=== PATIENT | male | born 1970 | race Caucasian/White ===

== ENCOUNTER → 2017-11-14 10:28 | Outpatient (CLI) | payer MEDICAID, SELFPAY ==
[2017-11-14 11:29] LABS: Alanine Aminotransferase 41 U/L (12-78); Albumin Level 3.7 gm/dL (3.4-5.0); Alkaline Phosphatase 100 U/L (46-116); Anion Gap 12.7 mEq/L (5-15); Aspartate Amino Transferase 41 U/L (15-37); Bilirubin,Total 0.4 mg/dL (0.2-1.0); Blood Urea Nitrogen 12 mg/dL (7-18); Calcium 9.5 mg/dL (8.5-10.1); Carbon Dioxide 28 mmol/L (21.0-32.0); Chloride 104 mmol/L (98-107); Cholesterol 132 mg/dL (140-200); Creatine Kinase 134 U/L (39-308); Creatine Kinase MB 2.7 ng/ml (0.0-3.6); Creatinine,Serum 1.06 mg/dL (0.70-1.30); Estimated Glomerular Filt Rate 74 ml/min (>60); GFR (African American) 90 ML/MIN (>60); Globulin 3.8 gm/dl (1.3-3.2); Glucose 218 mg/dL (74-106); HDL Cholesterol 22 mg/dL (27-67); LDL Cholesterol 51 mg/dL (0-130); Potassium 3.7 mmoL/L (3.5-5.1); Sodium 141 mmol/L (136-145); Thyroid Stimulating Hormone 1.84 uIU/ml (0.358-3.740); Total Protein,Serum 7.5 gm/dL (6.4-8.2); Triglycerides 296 mg/dL (30-200); Troponin I < 0.02 ng/ml (0.00-0.06); VLDL Cholesterol 59 mg/dL (0-40)
[2017-11-14 12:13] LABS: Basophils % 0.7 % (0.1-2.0); Eosinophils # 0.3 K/mm3 (0.0-0.4); Eosinophils % 5.3 % (0.1-12.0); Hematocrit 48.3 % (42.0-52.0); Hemoglobin 16.3 g/dL (14.1-18.0); Lymphocytes # 2.1 K/mm3 (0.7-4.5); Lymphocytes % 33.6 K/mm3 (10-50); Mean Corpuscular HGB Conc 33.8 g/dL (31.8-35.4); Mean Corpuscular Hemoglobin 29.9 pg (27.0-31.2); Mean Corpuscular Volume 88.7 fl (80-94); Mean Platelet Volume 7.6 fl (7.4-10.4); Monocytes # 0.6 K/mm3 (0.1-1.0); Monocytes % 8.8 % (1.7-9.3); Neutrophils # 3.3 K/mm3 (1.8-7.8); Neutrophils % 51.7 % (37.0-80.0); Platelet Count 254 K/mm3 (142-424); Red Blood Count 5.45 M/mm3 (4.60-6.20); Red Cell Distribution Width 12.8 % (11.5-17.5); White Blood Count 6.3 K/mm3 (4.8-10.8)
[2017-11-14 13:00] LABS: Hemoglobin A1C 6.1 % (0.0-7.0)
[2017-11-16 17:31] LABS: Vitamin B12 421 pg/mL (232-1245)
== END ==
PROVIDERS: Visit Provider Physician Assistant
DX: R07.9 Chest pain, unspecified (principal); R00.2 Palpitations; R06.02 Shortness of breath; R73.01 Impaired fasting glucose; I10 Essential (primary) hypertension; E78.2 Mixed hyperlipidemia; E53.8 Deficiency of other specified B group vitamins
CPT/HCPCS: 36415; 80053; 80061; 82550; 82553; 82607; 83036; 84443; 84484; 85025; 93005

== ENCOUNTER → 2017-11-20 07:41 | Outpatient (CLI) | payer MEDICAID, SELFPAY ==
--- NOTE | 2017-11-20 07:46 | CA_ITS ---
PROCEDURE: 2-D M-mode and color Doppler study INDICATIONS FOR THE TEST: Chest pain X COPD Heart Murmur Tobacco Smoking Palpitations Fatigue Syncope Edema HypertensionXDiabetes Mellitus Rheumatic Fever SOB LANDRY ObesityXHyperlipidemiaX Family History HD Additional History TDS OBESITY PATIENT INFORMATION HEIGHT: 70 WEIGHT:275 GENDER: Male B/P:120/80 2-D/M-MODE INTERPRETATION: 2-D MEASUREMENTS OBSERVED VALUES IN CMS Right Ventricular Dimension (RVDd) 3.0 Interventricular Septum (Thickness)(IVsd) 1.4 Left Ventricular Internal Dimensions(LVIDd) 4.3 Left Ventricular Posterior Wall (Thickness)(LVPWd) 1.2 Aortic Root 3.9 Aortic Cusp Separation 2.1 Left Atrial Dimensions (LAD) 3.2 2D 1. Left atrium is qualitatively mildly enlarged, left ventricle is normal size, mild concentric left ventricular hypertrophy, visually estimated ejection fraction 55% with no obvious regional wall motion abnormality. 2. The right atrium and right ventricle are mildly enlarged with normal contractility. 3. The aortic valve is minimally thickened and fibrosed. 4. The mitral valve has mitral annular calcification. 5. The pulmonic valve is poorly visualized. 6. Tricuspid valve is structurally normal. 7. No significant pericardial effusion noted. DOPPLER INTERROGATION: Doppler interrogation of the aortic, mitral and tricuspid valvular presence of mild mitral and tricuspid regurgitation, tricuspid and jet velocity insufficient for calculation of the right ventricular systolic pressure, grade 1 diastolic dysfunction seen without tissue Doppler evidence of raised left atrial pressure. CONCLUSION: 1. Qualitatively mildly enlarged left atrium, normal left ventricular size, mild concentric left ventricular hypertrophy, visually estimated ejection fraction 55% with no obvious regional wall motion abnormality, grade 1 diastolic dysfunction seen without tissue Doppler evidence of raised left atrial pressure. 2. Mildly enlarged right ventricle with normal contractility. 3. Mild mitral and tricuspid regurgitation. 4. No significant pericardial effusion noted.
== END ==
PROVIDERS: Family Provider Family Medicine; PCP Family Medicine; Visit Provider Family Medicine
DX: R07.9 Chest pain, unspecified (principal)
CPT/HCPCS: 93017; 93306

== ENCOUNTER → 2017-12-09 13:08 | Outpatient (CLI) | payer MEDICAID, SELFPAY | PROVIDERS: PCP Family Medicine; Visit Provider Family Medicine | DX: I10 Essential (primary) hypertension (principal); R06.83 Snoring; R53.83 Other fatigue | CPT/HCPCS: 95806 ==

== ENCOUNTER → 2018-02-02 10:06 | Outpatient (CLI) | payer MEDICAID, SELFPAY ==
--- NOTE | 2018-02-02 10:16 | XR_ITS ---
XR knee RT 3V HISTORY: ITS.REASON: RT KNEE PAIN ORDERING PHYSICIAN: Jana Treviño PATIENT AGE: 48 years COMPARISON: Right knee 06/21/2008 FINDINGS: No fracture or dislocation. No lytic or blastic change. Normal mineralization. No significant arthritic changes evident. No other significant findings IMPRESSION: Negative Knee
== END ==
PROVIDERS: PCP Family Medicine; Visit Provider Nurse Practitioner Family
DX: M25.561 Pain in right knee (principal)
CPT/HCPCS: 73562

== ENCOUNTER → 2018-02-09 08:24 | Outpatient (CLI) | payer MEDICAID, SELFPAY ==
--- NOTE | 2018-02-09 08:26 | MR_ITS ---
MR knee RT wo con HISTORY: Medial right knee pain ITS.REASON: RIGHT KNEE PAIN ORDERING PHYSICIAN: Jana Treviño PATIENT AGE: 48 years Comparison: 02/02/2018 TECHNIQUE: Standard multiplanar multiecho sequences are performed without contrast. FINDINGS: The cruciate ligaments, collateral ligaments, patellar tendon, quadriceps tendon also appear intact.. There is a nondisplaced horizontal tear involving the posterior horn of the medial meniscus. The lateral meniscus has an unremarkable appearance. There is thinning of the patellar cartilage with small osteophyte along the superior aspect and inferior aspect of the patella and small subcortical areas of increased T2 signal. A small knee joint effusion. Minimal bone marrow edema involves the medial femoral condyle medially IMPRESSION: 1. Horizontal tear involves posterior horn of the medial meniscus 2. Osteoarthritic change of the patellofemoral joint
== END ==
PROVIDERS: Family Provider Family Medicine; PCP Family Medicine; Visit Provider Nurse Practitioner Family
DX: M25.561 Pain in right knee (principal)
CPT/HCPCS: 73721

== ENCOUNTER 2018-08-19 15:00 | Outpatient (RCR) | payer MEDICAID, SELFPAY | END 2018-08-20 13:51 | disposition home or self-care (01) | LOC: PT.CARL 15:00 | PROVIDERS: Visit Provider Orthopaedic Surgery Adult Reconstructive Orthopaedic Surgery | DX: S83.241A Other tear of medial meniscus, current injury, right knee, initial encounter (principal); M25.561 Pain in right knee | CPT/HCPCS: 97010; 97110; 97112; 97163 ==

== ENCOUNTER → 2022-02-13 08:32 | Outpatient (CLI) | payer OTHER, SELFPAY ==
--- NOTE | 2022-02-13 08:36 | US_ITS ---
FINAL REPORT CLINICAL HISTORY: RIGHT UPPER QUADRANT ABDOMINAL PAIN FINDINGS: Sonographic images of the right upper quadrant were obtained. The pancreas is partially obscured. The liver has increased echogenicity consistent with fatty infiltration. The portal vein measures 9 mm and is patent with normal directional flow. There is sludge within the gallbladder with gallstones in the neck of the gallbladder. There is no evidence of biliary ductal dilatation.The common duct measures 4mm. The right kidney measures 12.0 cm in length and the limited images are unremarkable. IMPRESSION: Fatty liver. Cholelithiasis. Reviewed, Interpreted and Dictated by Hayden Mathews III, MD Transcribed by Marilynn Ambriz Authenticated and [facility]
== END ==
PROVIDERS: PCP Family Medicine; Visit Provider Family Medicine
DX: R10.11 Right upper quadrant pain (principal)
CPT/HCPCS: 76705

== ENCOUNTER → 2022-06-11 09:23 | Outpatient (CLI) | payer OTHER, SELFPAY ==
[2022-06-11 10:00] LABS: Basophils # 0.1 K/mm3 (0-0.2); Basophils % 1.2 % (0.1-2.0); Eosinophils # 0.2 K/mm3 (0.0-0.4); Eosinophils % 2.7 % (0.1-12.0); Hematocrit 51.3 % (42.0-52.0); Hemoglobin 16.8 g/dL (14.1-18.0); Lymphocytes % 35.9 % (10-50); Mean Corpuscular HGB Conc 32.8 g/dL (31.8-35.4); Mean Corpuscular Hemoglobin 29.7 pg (27.0-31.2); Mean Corpuscular Volume 90.3 fl (80-94); Mean Platelet Volume 8.2 fl (7.4-10.4); Monocytes # 0.3 K/mm3 (0.1-1.0); Monocytes % 5.3 % (1.7-9.3); Neutrophils % 54.9 % (37.0-80.0); Platelet Count 232 K/mm3 (142-424); Red Blood Count 5.68 M/mm3 (4.60-6.20); White Blood Count 5.5 K/mm3 (4.8-10.8)
[2022-06-11 10:22] LABS: Chloride 101 mmol/L (98-107)
[2022-06-11 10:23] LABS: Sodium 137 mmol/L (136-145)
[2022-06-11 10:25] LABS: Alanine Aminotransferase 56 U/L (12-78); Aspartate Amino Transferase 72 U/L (17-59); Blood Urea Nitrogen 15 mg/dl (9-20); Estimated Glomerular Filt Rate 70 ml/min (>60); GFR (African American) 84 ML/MIN (>60)
[2022-06-11 10:26] LABS: Albumin Level 4.2 g/dl (3.5-5.0); Albumin/Globulin Ratio 1.7 (1.1-1.8); Alkaline Phosphatase 107 U/L (38-126); Bilirubin,Total 0.6 mg/dl (0.2-1.3); Calcium 9.8 mg/dl (8.4-10.2); Carbon Dioxide 29 mmol/L (22.0-30.0); Globulin 2.5 g/dL (1.3-3.2); Glucose 189 mg/dl (74-100); Total Protein,Serum 6.7 g/dl (6.3-8.2)
== END ==
PROVIDERS: PCP Family Medicine; Visit Provider Surgery
DX: K82.9 Disease of gallbladder, unspecified (principal)
CPT/HCPCS: 36415; 80053; 85025

== ENCOUNTER 2022-08-05 07:44 | Day surgery (SDC) | payer OTHER, SELFPAY ==
[2022-08-05] VITALS (11 sets, daily range): BP systolic 132–158; BP diastolic 64–106; PULSE 66–97; RESP 17–19; TEMP 36.4–43; O2SAT 90–98
[2022-08-05 08:10] LABS: POC Glucose,Bedside 142 (70-110)
--- NOTE | 2022-08-05 08:51 | EXP.ANES.CKL ---
[facility] Disclaimer: The information contained in this section may have been updated after the patient was seen, as this information can be updated by other users. Medical History (Updated 08/05/22 @ 07:55 by Arline Samaniego RN) Hyperlipidemia Hypertension Sleep apnea Surgical History (Updated 06/28/22 @ 10:27 by Shelly Harris RN) History of carpal tunnel release of both wrists History of knee surgery History of spinal surgery Family History (Updated 08/05/22 @ 07:55 by Arline Samaniego RN) Other Family history of cancer Family history of hypertension Social History (Updated 08/05/22 @ 07:58 by Arline Samaniego RN) Smoking Status: Never smoker alcohol intake: current substance use type: denies use current occupational status: employed Travel in the last 8 weeks: [place] the [place] household members: none housing: house lives independently: Yes marital status: single education level: college current occupational exposures/hazards: Yes caffeine: Yes special lenin needs: No agree to transfusion: No do you feel safe at home: Yes victim of physical abuse: No victim of emotional abuse: No victim of sexual abuse: No would you like helpful sources: No [facility] Anesthesia Checklist Patient Identification Patient Identification: Arm Band Structural Data Admitted From: Home Planned Operative Procedure/s: Laparoscopic Cholecystectomy Consent for Planned Operative Procedure(s) Verified: Yes Verified Documents: Surgical Consent and History and Physical NPO Status Verified Time NPO: 00:00 Additional verifications Anesthesia Reactions: No Hx Blood Transfusions: No Blood Transfusion Reaction: No Airway Assessment C-Spine Mobility Assessed: Yes TMJ Mobility Assessed: Yes Dentition: Good Dentition (Front Chipped Tooth) Neurological Assessment Level of Consciousness: Awake and Alert Anesthesia Plan Anesthesia Risk discussed: Yes Anesthesia Plan: Verified ASA Class: III Anesthesia Type: General
--- NOTE | 2022-08-05 09:00 | EXP.GEN.HP ---
HPI HPI HPI: Patient is a pleasant 52-year-old male from [place] referred by Dr. Michael Dutta for gallbladder.? I had initially seen him in the office 02/26/22.? Patient works in construction and painting road lines.? He states that he is prediabetic .? He does have a known history of fatty liver.? He has recently developed some right upper quadrant pain with radiation into his back.? He has had some associated mild nausea.? This is been intermittent.? Interestingly he does have some degree of symptoms with positional changes and activities such as sneezing.? He does have occasional symptoms occurring postprandially.? He had a gallbladder ultrasound which reveals sludge and cholelithiasis in the neck of the gallbladder with fatty liver.? Due to his work schedule he wished to refrain from surgery until the wintertime.? He has had some ongoing right upper quadrant pain.? Less radiation into the back. [facility] Disclaimer: The information contained in this section may have been updated after the patient was seen, as this information can be updated by other users. Medical History (Updated 08/05/22 @ 07:55 by Arline Samaniego RN) Hyperlipidemia Hypertension Sleep apnea Surgical History (Updated 06/28/22 @ 10:27 by Shelly Harris RN) History of carpal tunnel release of both wrists History of knee surgery History of spinal surgery Family History (Updated 08/05/22 @ 07:55 by Arline Samaniego RN) Family history of cancer Family history of hypertension Social History (Updated 08/05/22 @ 07:58 by Arline Samaniego RN) Smoking Status: Never smoker alcohol intake: current substance use type: denies use current occupational status: employed Travel in the last 8 weeks: [place] the [place] household members: none housing: house lives independently: Yes marital status: single education level: college current occupational exposures/hazards: Yes caffeine: Yes special lenin needs: No agree to transfusion: No do you feel safe at home: Yes victim of physical abuse: No victim of emotional abuse: No victim of sexual abuse: No would you like helpful sources: No Meds Home Medications and Allergies Home Medications Medication Instructions Recorded Confirmed Type fenofibrate nanocrystallized 145 1 tab PO DAILY Cholesterol 02/26/22 08/05/22 History mg tablet irbesartan 150 1 tab PO DAILY BP 02/26/22 08/05/22 History mg-hydrochlorothiazide 12.5 mg tablet metformin 500 mg tablet 500 mg PO DAILY pre-diabetes 02/26/22 08/05/22 History metoprolol succinate 50 mg 50 mg PO DAILY BP 02/26/22 08/05/22 History tablet,extended release 24 hr omeprazole 40 mg capsule,delayed 40 mg PO DAILY acid reflux 02/26/22 08/05/22 History release New Prescriptions to Start Prescriptions: Allergies Allergy/AdvReac Type Severity Reaction Status Date / Time No Known Allergies Allergy Verified 06/11/22 09:01 Exam Data for Last 24 hours Vital signs and Labs for Last 24 Hours: Temp Pulse Resp BP Pulse Ox 97.5 F L 76 18 147/64 H 94 L 08/05/22 08:00 08/05/22 08:00 08/05/22 08:00 08/05/22 08:00 08/05/22 08:00 Laboratory Results - last 24 hr 08/05/22 08:03: POC Glucose 142 H Constitutional Constitutional: no acute distress *Routine HEENT Exam Head: Present normocephalic Eye: Present EOMI ENT: Present mucous membranes moist *Routine Respiratory Exam Respiratory: Present CTA bilaterally *Routine Cardiovascular Exam Cardiovascular: Present RRR *Routine Abdominal Exam Abdominal: Present soft *Routine Rectal Exam Rectal:: deferred *Routine Genitalia Exam Genitalia:: deferred Results Results Lab Results Last 24 Hours:: Laboratory Results - last 24 hr 08/05/22 08:03: POC Glucose 142 H Assessment and Plan *Assessment and plan (1) Gallstones: Status: Acute Category: Medical Code(s): K80.20 - Calculus of gallbladder without cholecystitis wi
--- NOTE | 2022-08-05 10:40 | EXP.OP.NOTE ---
Date of procedure: 08/05/22 Pre-op Diagnosis:: Symptomatic gallstones Post-op Diagnosis:: Same Liver disease Procedure performed:: Laparoscopic cholecystectomy Laparoscopic liver biopsy Surgeon:: Hayden Goodman MD BRUSH WORKER:: Other Anesthesia: GETA Estimated blood loss (mL): 15 Clinical Note:: Patient is a pleasant 52-year-old male from [place] referred by Dr. Michael Dutta for gallbladder.? I had initially seen him in the office 02/26/22.? Patient works in construction and painting road lines.? He states that he is prediabetic .? He does have a known history of fatty liver.? He has recently developed some right upper quadrant pain with radiation into his back.? He has had some associated mild nausea.? This is been intermittent.? Interestingly he does have some degree of symptoms with positional changes and activities such as sneezing.? He does have occasional symptoms occurring postprandially.? He had a gallbladder ultrasound which reveals sludge and cholelithiasis in the neck of the gallbladder with fatty liver.? Due to his work schedule he wished to refrain from surgery until the wintertime.? He has had some ongoing right upper quadrant pain.? Less radiation into the back. He wished to proceed to cholecystectomy. Please note, postoperatively given the appearance of the liver and nature of his symptoms is very probable that some degree of his symptoms are secondary to his liver. Biopsy was therefore performed. Operative findings:: He had a distended somewhat thickened gallbladder. There was some findings of appreciable fatty liver with some nodularity consistent with fibrosis Operative note:: Patient was taken the operating room. He was positioned in supine position. General anesthesia was induced via endotracheal tube. Abdomen was prepped and draped in the standard surgical fashion. Subumbilical skin incision was made and while performing abdominal wall lift Veress needle was inserted. CO2 pneumoperitoneum was achieved to 15 mmHg. 11 mm trocar was inserted at the umbilicus. Intraperitoneal contents were visualized. He was positioned in reverse Trendelenburg left side down. A couple of 5 mm trochars were inserted in the right upper abdomen. 10 mm trocar was inserted in the epigastrium. He had significant fatty infiltration of the liver with some nodularity. The gallbladder was grasped retracted anteriorly over the dome of the liver. He required use of the angled laparoscope for visualization of the neck of the gallbladder and jaimie hepatis. There was some significant fatty infiltration around the neck of the gallbladder. The blunt dissection was carried out ultimately identifying the cystic duct. Cystic duct was isolated, multiply clipped, and sharply divided. Ultimately the cystic artery was identified and carefully coagulated with ROSALINA ultrasonic harmonic connie and divided. The gallbladder was dissected free from the liver in a retrograde fashion using ROSALINA ultrasonic harmonic connie. There was a tiny amount of unavoidable spillage of bile during the dissection process and this was suctioned free. Gallbladder was placed within an Endo Catch retrieval device removed from the peritoneal cavity via the umbilical trocar site which required some stretching of the fascial incision for delivery. There was good hemostasis. Given the findings of appreciable liver disease plan was made for liver biopsy. A tiny piece of liver adjacent to the gallbladder fossa was excised using ROSALINA ultrasonic harmonic connie. This was sent as liver biopsy. The area was cauterized with laparoscopic electrocautery to assure hemostasis. Irrigation and suctioning was then performed until clear. Trochars were removed as CO2 pneumoperitoneum was evacuated. Fascia at the umbilicus was closed with several interrupted 0 Ethibond sutures. Local anesthetic was infiltrated. Anterior fascia at the epigastric site was closed with a 0 Vicryl suture. Skin was closed with 4-0 Monocry
--- NOTE | 2022-08-05 11:01 | P.PNANES_ITS ---
[facility] Anesthesia Record Part I Anesthesia Record I Intake, IV Amount: 1,000 Estimated blood loss (mL): 15 Urine output (mL): 0 Blood Products used (#): none Blood Pressure: 151/83 SaO2: 93 Pulse Rate: 74 Respiratory Rate: 18 Temperature: 98 F Patient is:: Drowsy and Stable Stable to PACU at:: 10:53
--- NOTE | 2022-08-05 11:20 | SUR.PHASEI ---
pt expressed pain at a level 3. offered pain medication but patient declined. pt educated on pain control and informed of pain medication being at [facility].
--- NOTE | 2022-08-05 13:13 | EXP.ANES.II ---
[facility] Anesthesia Record Part II Anesthesia Record Part II Discharge Time: 11:23 Destination: Surgical Day Care (OP Surgery) PACU nurse assessment reviewed?: Yes Patient Condition:: Good Anesthesia Complications:: None Swallowing reflex intact?: Yes Cyanosis?: No Blood Pressure: 147/88 Pulse Rate: 67 Temperature: 98 F Mental Status: Alert & Oriented Pain level:: 3 Nausea and/or vomitting:: None Intake, IV Amount: 0
== END 2022-08-05 12:05 | disposition home or self-care (01) ==
PROVIDERS: PCP Family Medicine; Visit Provider Surgery
PROC: 0FT44ZZ Resection of Gallbladder, Percutaneous Endoscopic Approach (ICD-10-PCS; CPT 47562; principal; 2022-08-05 09:15)
DX: K80.10 Calculus of gallbladder with chronic cholecystitis without obstruction (principal); K75.81 Nonalcoholic steatohepatitis (NASH); Z79.899 Other long term (current) drug therapy
CPT/HCPCS: 47562; 47379; 82962; 96374; J2405

== ENCOUNTER 2023-09-03 07:50 | Outpatient (CLI) | payer SELFPAY ==
--- NOTE | 2023-09-03 07:51 | CT_ITS ---
APPROVED REPORT Physician Assistant Surgery: CLINICAL INDICATION Risk stratification, preventative care TECHNIQUE Image Acquisition: A 128 slice MDCT scanner (StyleFeedera View) was used for data acquisition. A noncontrast coronary calcium scan was performed. A CT attenuation threshold of 130 Hounsfield units (HU) was used for the detection of calcium in contiguous voxels of 1 sq mm in area to be counted as individual lesions. A tube voltage of 120 KVp was used. The patient received no medications prior to the coronary calcium CT. Image Reconstruction Transaxial images were reconstructed at 0.67 mm slide thickness. Data was reviewed interactively on an advanced workstation capable of 2 and 3-dimensional displays in all conventional reconstruction formats, including multiplanar reformations, maximum intensity projections, curved multiplanar reformations, and volume rendered reconstructions. When applicable, selected routine images describing the relevant coronary anatomy and pathology were saved and sent to PACS. Complications None Technical Quality Overall image quality was good. Total DLP (Dose-Length Product) is 197.88 mGy-cm. The reported value represents the total of one or more individual components during the CT acquisition of this date and at this time, and as such, the same value may appear in more than one CT report depending on the interpreting/reporting physicians. COMPARISON None FINDINGS CT Coronary Calcium Scoring LMA (Left Main Artery) = 0 LAD (Left Anterior Descending) = 114 LCX (Left Coronary Circumflex) = 2 RCA (Right Coronary Artery) =1 Total Calcium Score = 117 using the AJ-130 method. There is also identifiable calcification in the ascending thoracic aorta and the annulus of the mitral valve. IMPRESSION -Coronary artery calcification is present. -Total Calcium Score (Agatston Score) = 117 using the AJ-130 method. -The observed calcium score of 117 is at 82nd percentile for subjects of the same age, sex, and race/ethnicity. The interpretation of the calcium heart score is based on the following continuum*: 0 = no calcified plaque detected (risk of coronary artery disease is very low ??? less than 5%) 1-10 = calcium detected in extremely minimal levels (risk of coronary diseases is still low ??? less than 10%) 11-100 = mild levels of plaque detected with certainty (mild or minimal narrowing of heart arteries is likely) 101-400 = definite,at least moderate levels of plaque detected (relatively high risk of a heart attack within 3-5 years) >401-999 = extensive levels of plaque detected (high risk of heart attack, high levels of vascular disease are present, high likelihood of at least one significant coronary narrowing) *The calcium heart score quantifies the burden of coronary calcification/plaque in the coronary arteries. The calcium heart score does not evaluate the presence or the burden of non-calcified (i.e. soft) plaque. The coronary and cardiac findings of this Coronary Calcium CT were reviewed, reported, and signed by London Osuna MD (Aviation Support Equipment Repairer). Conclusion Electronically signed by : Renay Osuna MD 09/03/2023 11:33:22
== END 2023-09-03 23:59 ==
LOC: RAD 07:51
PROVIDERS: PCP Family Medicine; Visit Provider Physician Assistant
DX: I10 Essential (primary) hypertension (principal); E78.5 Hyperlipidemia, unspecified; R73.03 Prediabetes
CPT/HCPCS: 75571